=== PATIENT | female | born 1985 | race Two or more races ===

== ENCOUNTER → 2025-01-09 | Emergency (ER) | payer BC ==
[~2025-01-09] VITALS: Ht 170.2 cm; Wt 100.7 kg
[~2025-01-09] MED LIST: KETOROLAC TROMETHAMINE 60 MG VIAL IM ONE; TRAMADOL HCL 50 MG TABLET PO ONE
== END | disposition home or self-care (01) ==
LOC: ER 16:47
DX: S42.301A Unspecified fracture of shaft of humerus, right arm, initial encounter for closed fracture (principal); W18.39XA Other fall on same level, initial encounter; Y93.89 Activity, other specified; Y92.89 Other specified places as the place of occurrence of the external cause